=== PATIENT | female | born 1930 | race Caucasian/White ===

== ENCOUNTER 2017-08-13 08:43 | Emergency (ER) | payer MEDICARE ==
--- NOTE | 2017-08-13 09:03 | RAD ---
CHEST 1 VIEW: Date: 08/13/17 HISTORY: Dyspnea. COMPARISON: 08/09/16. FINDINGS: Cardiac silhouette is magnified and upper limits of normal. Pulmonary vasculature is more engorged th an on the prior study with mild bilateral perihilar and bibasilar infiltrates. Mediastinum is midline with aortic calcification and a dual lead left subclavian cardiac electronic device. No lobar consol idation or evidence of pneumothorax. There are degenerative changes of the shoulders. IMPRESSION: Mild pulmonary vascular congestion. POS: [facility]
--- NOTE | 2017-09-05 21:19 | EKG ---
Test Reason : SOB Blood Pressure : / mmHG Vent. Rate : 060 BPM Atrial Rate : 060 BPM P-R Int : 132 ms QRS Dur : 142 ms QT Int : 476 ms P-R-T Axes : 065 -41 098 degrees QTc Int : 476 ms Electronic atrial pacemaker Left axis deviation Right bundle branch block T wave abnormality, consider lateral ischemia Abnormal ECG Confirmed by KAIA MARTINEZ MD ([id number]), senior technical editor BRENNA TORRES ([id number]) on 09/05/2017 9:18:47 PM Referred By: Confirmed By:KAIA MARTINEZ MD
== END 2017-08-13 11:00 | disposition home or self-care (01) ==
LOC: ERS 08:43
DX: J44.9 Chronic obstructive pulmonary disease, unspecified (principal); I11.0 Hypertensive heart disease with heart failure; I50.9 Heart failure, unspecified; Z79.899 Other long term (current) drug therapy
CPT/HCPCS: 71045; 93005; 94760

== ENCOUNTER 2018-03-29 12:18 | Emergency (ER) | payer MEDICARE ==
[2018-03-29 13:42] LABS: #Eosinphils 0.2 thou/uL (0.0-0.7); #Monocytes 0.5 thou/uL (0.11-0.59); #Neutrophils 3.8 thou/uL (1.40-6.50); %Basophils 0.7 % (0.0-1.0); %Eosinophils 3.8 % (0.0-10.0); %Lymphocytes 17.8 % (21.0-51.0); %Monocytes 9.1 % (0.0-10.0); %Neutrophils 68.6 % (42.0-75.0); Mean Corpuscular HGB CONC 31.4 g/dL (32.0-36.0); Mean Corpuscular Hemoglobin 28.1 pg (27.0-31.0); Mean Corpuscular Volume 89.4 fL (78.0-98.0); Mean Platelet Volume 9.1 fL (7.4-10.4); Platelet Count 379 thou/uL (130-400); Red Blood Cell (RBC) Count 4.65 mill/uL (4.20-5.40); White Blood Cell (WBC) Count 5.6 thou/uL (4.8-10.8)
[2018-03-29 13:56] LABS: Bilirubin Negative (Negative); Blood, Urine Negative (Negative); Clarity CLEAR (Clear); Glucose, Urine (Dipstick) Negative (Negative); Leukocyte Trace (Negative); Nitrite Negative (Negative); Protein, Urine (Dipstick) Negative (Neg-Trace); Specific Gravity, Urine 1.015 (1.002-1.036); pH, Urine 7.5 (5.0-9.0)
[2018-03-29 13:58] LABS: Bacteria/HPF None Seen HPF (None Seen); Hyaline Casts/LPF 0-3 HYALINE CAST LPF (0-3 Hyaline); RBC/HPF 0-3 HPF (0-3); Squamous Epithelial 0-3 HPF (0-3); WBC/HPF 0-3 HPF (0-3)
[2018-03-29 13:59] LABS: ALT (SGPT) 16 U/L (8-55); AST (SGOT) 24 U/L (5-34); Albumin 4.1 g/dL (3.4-4.8); Alkaline Phosphatase 50 U/L (40-150); Anion Gap 12 mmol/L (10-20); BUN (Urea Nitrogen) 40 mg/dL (9.8-20.1); Bilirubin, Total 0.8 mg/dL (0.2-1.2); CK (CPK) 85 U/L (29-168); Calc. Creatinine Clearance 0 mL/min (70-130); Calcium 9.1 mg/dL (7.8-10.44); Carbon Dioxide 29 mmol/L (23-31); Chloride 101 mmol/L (98-107); Estimated GFR-MDRD 41; Globulin 2.6 g/dL (2.4-3.5); Glucose 97 mg/dL (83-110); Protein, Total 6.7 g/dL (6.0-8.3); Sodium 138 mmol/L (136-145)
[2018-03-29 14:00] LABS: CKMB 1.7 ng/mL (0-6.6); Troponin I Less than 0.010 ng/mL (< 0.028)
--- NOTE | 2018-03-29 14:00 | RAD ---
SINGLE VIEW OF THE CHEST: Comparison: 08-13-17 History: Fluid overload FINDINGS: Single view of the chest of the chest shows an enlarged but stable cardiomediastinal silhouette. The pacemaker is unchanged in position. There is no evidence of consolidation, mass, or pleural effusion. IMPRESSION: No evidence of acute cardiopulmonary disease. POS: [facility]
[2018-03-29] MEDS ORDERED: Furosemide 40 MG/4 ML VIAL ONE (14:18)
== END 2018-03-29 15:19 | disposition home or self-care (01) ==
LOC: ERS 12:18
DX: I11.0 Hypertensive heart disease with heart failure (principal); I50.9 Heart failure, unspecified; E87.70 Fluid overload, unspecified; R60.0 Localized edema; Z79.899 Other long term (current) drug therapy; Z79.891 Long term (current) use of opiate analgesic
CPT/HCPCS: 71045; 80053; 81003; 81015; 82553; 83880; 84484; 85025; 93005; 96374; J1940

== ENCOUNTER 2018-09-04 09:39 | Inpatient (IN) | payer MEDICARE ==
[2018-09-04 10:16] LABS: Actual Bicarbonate (HCO3a) 25.4 mEq/L (22-28); Analyzer IN Cardio ER; Base Excess (BEa) 1.4 mEq/L (-2.0 to +3.0); CO2 Tension 38.2 mmHg (35.0-45.0); Calcium, Ionized 1.19 mmol/L (1.12-1.30); Carboxyhemoglobin (COHb) 1.2 gm% (0.0-3.0); Hemoglobin (Hb) 14.3 g/dL (12.0-16.0); Potassium - ABG Lab 3.59 mmol/L (3.70-5.30); pH, Arterial 7.44 (7.35-7.45)
[2018-09-04 10:20] LABS: O2 Tension (PaO2) 53.8 mmHg (> 60.0)
[2018-09-04 10:21] LABS: Puncture Site RR
[2018-09-04 10:36] LABS: #Eosinphils 0.1 thou/uL (0.0-0.7); #Monocytes 0.4 thou/uL (0.11-0.59); #Neutrophils 4.8 thou/uL (1.40-6.50); %Basophils 0.4 % (0.0-1.0); %Eosinophils 1.1 % (0.0-10.0); %Lymphocytes 15.4 % (21.0-51.0); Hemoglobin 14.5 g/dL (12.0-16.0); Mean Corpuscular HGB CONC 31.7 g/dL (32.0-36.0); Mean Corpuscular Hemoglobin 27.9 pg (27.0-31.0); Mean Corpuscular Volume 87.9 fL (78.0-98.0); Mean Platelet Volume 9.3 fL (7.4-10.4); Platelet Count 320 thou/uL (130-400); RBC Distribution Width 14.3 % (11.5-14.5); White Blood Cell (WBC) Count 6.2 thou/uL (4.8-10.8)
--- NOTE | 2018-09-04 10:38 | RAD ---
FPortable chest radiograph: 09/04/2018 COMPARISON: 03/29/2018 HISTORY:Dyspnea FINDINGS: Stable dual lead transvenous pacing device. New pulmonary vascular congestion. New intersti tial opacity in the perihilar regions and both lung bases with new focal right perihilar airspace dis ease and new bibasilar airspace disease. Small bilateral pleural effusions are suspected. IMPRESSION: New pulmonary vascular congestion with interstitial and alveolar opacity as above. Findin gs are most consistent with pulmonary edema. Infectious pneumonitis or aspiration is a possibility. F ollow-up imaging following treatment to document resolution advised.
[2018-09-04 10:55] LABS: ALT (SGPT) 14 U/L (8-55); AST (SGOT) 24 U/L (5-34); Alkaline Phosphatase 45 U/L (40-150); Anion Gap 13 mmol/L (10-20); BUN (Urea Nitrogen) 24 mg/dL (9.8-20.1); Bilirubin, Total 1.1 mg/dL (0.2-1.2); Calc. Creatinine Clearance 0 mL/min (70-130); Calcium 9.3 mg/dL (7.8-10.44); Carbon Dioxide 27 mmol/L (23-31); Chloride 104 mmol/L (98-107); Estimated GFR-MDRD 52; Globulin 2.7 g/dL (2.4-3.5); Glucose 98 mg/dL (83-110); Potassium 3.7 mmol/L (3.5-5.1); Protein, Total 6.7 g/dL (6.0-8.3); Sodium 140 mmol/L (136-145)
[2018-09-04] MEDS ORDERED: cefTRIAXone\\ROCEPHIN 1 GM VIAL ONE (11:28)
[2018-09-04] MEDS ORDERED: Sodium Chloride 0.9% 100 ML ONE (11:28)
[2018-09-04] MEDS ORDERED: Ondansetron PF 4 MG/2 ML Vial IVP PRN (12:07)
[2018-09-04] MEDS ORDERED: HYDROcodone/Acetaminophen 5/325 mg Tablet PO PRN (12:07)
[2018-09-04] MEDS ORDERED: Acetaminophen 325 MG TAB PO PRN (12:07)
[2018-09-04] MEDS ORDERED: Zolpidem Tartrate 5 MG TAB PO PRN (12:07)
--- NOTE | 2018-09-04 12:15 | PDOC.EVN ---
Event Note - Event Note Event Note: H&P #[id number]
[2018-09-04] MEDS: Furosemide 40 MG/4 ML VIAL SLOW IVP SCH (14:03)
[2018-09-04] MEDS ORDERED: Metoprolol Tartrate 5 MG/5 ML VIAL IVP PRN (14:34)
[2018-09-04] MEDS: Azithromycin 500 MG in Sodium Chloride 0.9% 250 ML 250 ML IVPB SCH (14:42)
[2018-09-04] MEDS: methylPREDNISolone Sod Succ/PF 125 MG/2 ML VIAL IVP SCH (17:50)
--- NOTE | 2018-09-04 18:28 | HP ---
CHIEF COMPLAINT: Shortness of breath, cough, fevers, and chills. HISTORY OF PRESENT ILLNESS: This is an 87-year-old female for the past 3 to 4 days has been having shortness of breath, fevers, chills, and cough. The patient of note, sees a tablet technician at [facility]; however, they could not go over there because this hospital at [facility] was closer. The patient stated that she was having cough with shortness of breath the past 3 to 4 days. States that she uses also oxygen permanently at home. Has a history of congestive heart failure, diastolic in nature. According to the family, the patient was noted to have a mild low-grade fever of 100 degrees while here in the hospital, she has been given IV antibiotics. Influenza workup done in the hospital was negative. The patient stated that she had her flu vaccine as well as her Prevnar, Pneumovax done recently. The patient was found to be severely hypoxic with a PO2 of 54 on ABG upon time of admission. The patient otherwise stated that she feels well. Denies any other associated complaints. No alleviating or aggravating factors. The patient is seen and examined in the ER. Family at bedside. All questions answered. ALLERGIES: NO KNOWN DRUG ALLERGIES. 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 FAMILY HISTORY: Positive for hypertension and hyperlipidemia. SOCIAL HISTORY: Nondrinker and nonsmoker. REVIEW OF SYSTEMS: All systems reviewed pertinent positive in HPI, otherwise negative. PHYSICAL EXAMINATION: VITAL SIGNS: Blood pressure of 110/88, heart rate of 98, temperature of 99.8, and O2 saturations are 92% on breathing treatment at this point in time. GENERAL: The patient lying upright in bed with some mild acute respiratory distress. HEENT: Pupils are equal, round, and reactive to light and accommodation. Extraocular muscles intact. Oral cavity moist and pink. NECK: Supple and nontender. Thyroid appreciated. PULMONARY: She has inspiratory crackles in bilateral lower extremities, as well as expiratory wheezing in all lung mosley. Mild respiratory distress noted. CARDIOVASCULAR: Borderline tachycardia. S1 and S2. Faint systolic ejection murmur appreciated. ABDOMEN: Positive bowel sounds. Soft, nontender, and nondistended. EXTREMITIES: Reveals trace pitting edema. No cyanosis or clubbing. 2+ peripheral pulses. NEUROLOGIC: Cranial nerves 2 through 12 intact. No loss of motor or sensory function. LABORATORY DATA: CBC reviewed. BMP reviewed. Chest x-ray reviewed. ASSESSMENT: 1. Shortness of breath likely secondary to CHF decompensation. 2. Pneumonia. 3. Volume overload. 4. Hypertension. 5. Hypoxia. 6. Hypertension. 7. Hyperlipidemia. PLAN: At this point in time, we will admit the patient to Internal Medicine Team. We will start her on Rocephin and Zithromax to treat for community-acquired pneumonia. We will consult Pulmonary Team. We will get Solu-Medrol, DuoNebs, blood cultures, labs in the morning and echocardiogram. We will also do heparin for DVT prophylaxis. Case and plan discussed with the patient and family at length. They understand, agree with this plan. Job ID: [id number]
[2018-09-04] MEDS: Atorvastatin Calcium 10 MG TAB PO SCH (20:50)
[2018-09-04] MEDS: Heparin 5,000 UNITS/ML VIAL SC SCH (20:51)
[2018-09-04] MEDS: Famotidine 20 MG TAB PO SCH (20:51)
[2018-09-04] MEDS: Simvastatin 20 MG TAB PO SCH (20:52)
[2018-09-04] MEDS ORDERED: Amlodipine 5 MG TAB PO SCH (21:00)
[2018-09-04] MEDS ORDERED: Carvedilol 6.25 MG TAB PO SCH (21:00)
[2018-09-04] MEDS: Carvedilol 6.25 MG TAB PO SCH (21:00)
[2018-09-04] MEDS ORDERED: Apixaban 2.5 MG TAB PO SCH (21:00)
[2018-09-05] MEDS: methylPREDNISolone Sod Succ/PF 125 MG/2 ML VIAL IVP SCH ×4 (01:10→17:46)
[2018-09-05] MEDS: Furosemide 40 MG/4 ML VIAL SLOW IVP SCH ×2 (05:33→13:25)
[2018-09-05 06:05] LABS: #Lymphocytes 0.6 thou/uL (1.20-3.40); #Monocytes 0.3 thou/uL (0.11-0.59); %Basophils 0.1 % (0.0-1.0); %Eosinophils 0.2 % (0.0-10.0); %Lymphocytes 9.3 % (21.0-51.0); %Monocytes 3.6 % (0.0-10.0); %Neutrophils 86.8 % (42.0-75.0); Mean Corpuscular HGB CONC 31.6 g/dL (32.0-36.0); Mean Corpuscular Hemoglobin 27.6 pg (27.0-31.0); Mean Corpuscular Volume 87.3 fL (78.0-98.0); Mean Platelet Volume 9.3 fL (7.4-10.4); Platelet Count 340 thou/uL (130-400); RBC Distribution Width 14.2 % (11.5-14.5); Red Blood Cell (RBC) Count 5.08 mill/uL (4.20-5.40); White Blood Cell (WBC) Count 6.9 thou/uL (4.8-10.8)
[2018-09-05 06:22] LABS: Anion Gap 14 mmol/L (10-20); BUN (Urea Nitrogen) 24 mg/dL (9.8-20.1); Calc. Creatinine Clearance 50 mL/min (70-130); Calcium 8.9 mg/dL (7.8-10.44); Carbon Dioxide 27 mmol/L (23-31); Chloride 105 mmol/L (98-107); Estimated GFR-MDRD 55; Glucose 161 mg/dL (83-110); Potassium 3.5 mmol/L (3.5-5.1); Sodium 142 mmol/L (136-145)
[2018-09-05] MEDS ORDERED: Potassium Chloride 10 MEQ TAB PO SCH (09:00)
[2018-09-05] MEDS ORDERED: Losartan 25 MG TAB PO SCH ×2 (09:00)
[2018-09-05] MEDS ORDERED: Aspirin 325 mg Enteric Coated Tablet PO SCH (09:00)
--- NOTE | 2018-09-05 09:50 | RAD ---
FPortable chest radiograph: 09/05/2018 COMPARISON: 09/04/2018 HISTORY:congestive heart failure versus pneumonia FINDINGS: Stable dual lead transvenous pacing device. Markedly improved aeration in both lung bases. Persistent focal right perihilar opacity noted. This could signify pulmonary vascular prominence, per sistent right perihilar airspace disease, or underlying mass. Recommend follow-up PA and lateral imag ing of the chest following treatment. IMPRESSION: Interval improvement in bibasilar aeration with persistent focal right perihilar opacity as detailed above.
[2018-09-05] MEDS: Carvedilol 6.25 MG TAB PO SCH ×2 (09:54→20:59)
[2018-09-05] MEDS: Famotidine 20 MG TAB PO SCH ×2 (09:54→21:00)
[2018-09-05] MEDS: Amlodipine 5 MG TAB PO SCH (09:55)
[2018-09-05] MEDS: Potassium Chloride 10 MEQ TAB PO SCH (09:55)
[2018-09-05] MEDS ORDERED: Apixaban 2.5 MG TAB PO SCH (10:30)
[2018-09-05] MEDS: Heparin 5,000 UNITS/ML VIAL SC SCH (11:13)
[2018-09-05] MEDS ORDERED: cefTRIAXone\\ROCEPHIN 1 GM in Sodium Chloride 0.9% 100 ML IVPB SCH (12:00)
[2018-09-05] MEDS: Azithromycin 500 MG in Sodium Chloride 0.9% 250 ML 250 ML IVPB SCH (12:17)
--- NOTE | 2018-09-05 14:22 | PDOC.PN ---
- Subjective Encounter Start Date: 09/05/18 Encounter Start Time: 14:21 Patient seen and examined, no new issues or complaints, patient states he feels MUCH better, all questions answered. Family at bedside, all questions answered. - Objective Vital Signs & Weight: Vital Signs (12 hours) Temp Pulse Resp BP BP Pulse Ox 09/05/18 11:35 97.9 F 81 22 H 118/76 92 L 09/05/18 09:55 84 09/05/18 08:00 97 09/05/18 07:45 97.4 F L 84 20 140/79 97 09/05/18 04:11 97.5 F L 73 16 115/60 94 L Weight Weight 164 lb 4 oz I&O: 09/04/18 09/05/18 09/06/18 06:59 06:59 06:59 Intake Total 580 1060 Output Total 200 Balance 580 860 Result Diagrams: 09/05/18 05:51 09/05/18 05:51 Phys Exam - Physical Examination Constitutional: NAD HEENT: PERRLA, moist MMs, sclera anicteric Neck: no nodes, no JVD, supple Respiratory: no wheezing, no rales, no rhonchi Cardiovascular: RRR, no significant murmur, no rub Gastrointestinal: soft, non-tender, no distention Musculoskeletal: no edema, pulses present Dx/Plan (1) Acute exacerbation of CHF (congestive heart failure) Code(s): I50.9 - HEART FAILURE, UNSPECIFIED Status: Acute (2) Acute respiratory failure with hypoxia Code(s): J96.01 - ACUTE RESPIRATORY FAILURE WITH HYPOXIA Status: Acute (3) Acute worsening of stage 3 chronic kidney disease Code(s): N18.3 - CHRONIC KIDNEY DISEASE, STAGE 3 (MODERATE) Status: Acute (4) Community acquired bacterial pneumonia Code(s): J15.9 - UNSPECIFIED BACTERIAL PNEUMONIA Status: Acute - Plan * cont current plan of care for now * DC plans in AM if patient doing well and with no complaints. * case and plan d/w patient at length, she understood and agreed with this plan
[2018-09-05] MEDS: Simvastatin 20 MG TAB PO SCH (20:59)
[2018-09-05] MEDS: Cefuroxime Axetil 250 MG TAB PO SCH (20:59)
[2018-09-05] MEDS: Apixaban 2.5 MG TAB PO SCH (21:01)
[2018-09-05] MEDS: Atorvastatin Calcium 10 MG TAB PO SCH (21:02)
--- NOTE | 2018-09-05 23:40 | CON ---
DATE OF CONSULTATION: 09/05/2018 HISTORY OF PRESENT ILLNESS: Yeny Davila is a very pleasant 87-year-old female. She tells me she has a history of diastolic heart failure. She presented with a 4-pound weight gain and severe shortness of breath. Intake and output 2 days is not accurately recorded. Weight has gone from 166 to 164, again I am not sure that this is an accurate weight. PAST MEDICAL HISTORY: Remarkable for, 1. Asthma. 2. Diastolic dysfunction. 3. History of pacemaker and an AICD. 4. History of hypertension. 5. Lipid disorder. FAMILY HISTORY: Positive for vascular disease and hypertension. SOCIAL HISTORY: Nonsmoker, nondrinker, nondrug user. ALLERGIES: SHE HAS NO REPORTED DRUG ALLERGIES. REVIEW OF SYSTEMS: A 10-point review of systems completed, otherwise negative. PHYSICAL EXAMINATION: GENERAL: She is in no distress. VITAL SIGNS: She is afebrile, heart rate 90, respiratory rate 18, oximetry is 93% on 2 L cannula, blood pressure 116/68. HEENT: Unremarkable. She has no cervical lymphadenopathy. NECK: Supple. LUNGS: Clear. HEART: Regular rhythm, S1 and S2 are normal. No murmurs heard. ABDOMEN: Soft and nontender. No organomegaly or masses or tenderness. EXTREMITIES: Without clubbing, cyanosis, or edema. She says she came in with significant lower extremity edema, this has gone. LABORATORY DATA: White count 6.9, hemoglobin 14.0, platelets 340,000. Sodium 142, potassium 3.5, chloride 105, bicarb 27, BUN 24, creatinine 0.9. BNP on admission was 1193. Chest radiograph on admission suggestive of congestive heart failure. I ordered repeat radiograph today, which shows dramatic improvement of her pulmonary infiltrates. Her right hilar area is full. I suspect this is what her marketing communications leader at [facility] is followed. I have explained to her that if this fails to normalize on followup film in 2 to 4 weeks, then I would recommend with a CT of her chest. IMPRESSION: Congestive heart failure. I do not feel that she has pneumonia. She could be switched to p.o. antibiotics. Her steroids could be converted to p.o. She is a candidate for discharge tomorrow in my opinion. TIME SPENT: This is a 50-minute consult, with greater than 50% of the time spent on the unit coordinating care. Job ID: [id number] YUNG
[2018-09-06] MEDS: methylPREDNISolone Sod Succ/PF 125 MG/2 ML VIAL IVP SCH ×2 (01:13→06:40)
[2018-09-06] MEDS: Furosemide 40 MG/4 ML VIAL SLOW IVP SCH (06:40)
[2018-09-06 07:39] VITALS: BP 134/78; TEMP 97.7
--- NOTE | 2018-09-06 07:42 | RAD ---
FChest one view HISTORY: Pneumonia. Follow-up. COMPARISON: 09/05/2018. FINDINGS: Cardiac silhouette is magnified by projection and upper limits normal in size. Pulmonary va sculature is unremarkable. Mediastinum is midline with a dual lead left subclavian cardiac electronic device. Right perihilar infiltrate is unchanged in appearance from the previous exam. No evidence of pneumoth orax. No new infiltrate. IMPRESSION: Right perihilar infiltrate and other findings are stable.
[2018-09-06] MEDS: Cefuroxime Axetil 250 MG TAB PO SCH (09:38)
[2018-09-06] MEDS: Apixaban 2.5 MG TAB PO SCH (09:38)
[2018-09-06] MEDS: Amlodipine 5 MG TAB PO SCH (09:38)
[2018-09-06] MEDS: Potassium Chloride 10 MEQ TAB PO SCH (09:38)
[2018-09-06] MEDS: Famotidine 20 MG TAB PO SCH (09:39)
[2018-09-06] MEDS: Carvedilol 6.25 MG TAB PO SCH (09:39)
[2018-09-06 10:42] VITALS: BMI 28.2
--- NOTE | 2018-09-06 11:02 | PRG ---
DATE OF SERVICE: 09/06/2018 SUBJECTIVE: Yeny Davila did well overnight. She has no complaints. She feels like she is ready to go home. OBJECTIVE: VITAL SIGNS: She is afebrile. Heart rate is 83, blood pressure 134/78, respiratory rate 16, oximetry is 95% on a cannula. She was wearing a home CPAP last night. LUNGS: Clear. HEART: Regular rhythm. ABDOMEN: Soft. LABORATORY DATA: No new labs today. IMPRESSION AND PLAN: 1. Congestive heart failure, clinically improved. 2. Hilar fullness on the right. I suspect this is old and just pulmonary artery. She needs followup radiograph with her [employer] consulting utility forester in one month as I have explained to her. I would not recommend CAT scanning at this time since a workup would not be entertained this admission anyway if there was a hilar abnormality. 3. I do not believe she is infected and her antibiotics actually could probably be stopped at discharge since she received several days of Rocephin. 4. I do not see any reason to continue the steroids. 5. She can go back on her home medications for asthma. She has not had active asthma in my opinion this admission. We will sign off. Job ID: [id number]
--- NOTE | 2018-09-06 12:15 | PDOC.EVN ---
Event Note - Event Note Event Note: AK #[id number]
--- NOTE | 2018-09-06 13:32 | DIS ---
DATE OF ADMISSION: 09/04/2018 DATE OF DISCHARGE: 09/06/2018 ADMITTING DIAGNOSES: Congestive heart failure, shortness of breath, hypoxia, heart failure. DISCHARGE DIAGNOSES: Congestive heart failure, hypoxia resolved, hypertension, pneumonia resolved. HOSPITAL COURSE: An 87-year-old female admitted to the hospital concerning for pulmonary infiltrates and volume overload. Her white count was normal. She was started on some IV antibiotics and also diuretics. The patient was admitted for 2 days, feeling significantly better after diuretics were given. The patient at that point in time of discharge was stable, walking around, cleared by Pulmonary and Internal Medicine for discharge. Given antibiotic azithromycin for 3 days. The patient was to follow up with PCP within 1 to 2 weeks, as well as with pulmonary physician within 1 to 2 weeks for further management and care. DISPOSITION: Home. FOLLOWUP: Follow up with PCP and Pulmonary within 1 to 2 weeks. MEDICATIONS: See MAR. ACTIVITY: As tolerated with assistance as needed. DIET: Low-fat, low-calorie, high-fiber diet. CONDITION: Stable. PROGNOSIS: Good. Case and plan discussed with patient at length. She understood and agreed with this plan. Job ID: [id number]
--- NOTE | 2018-09-06 13:37 | EKG ---
Test Reason : STAT Blood Pressure : / mmHG Vent. Rate : 118 BPM Atrial Rate : 082 BPM P-R Int : 000 ms QRS Dur : 136 ms QT Int : 392 ms P-R-T Axes : 000 -53 080 degrees QTc Int : 549 ms Atrial fibrillation with rapid ventricular response with occasional ventricular-paced complexes Left axis deviation Right bundle branch block T wave abnormality, consider lateral ischemia Abnormal ECG When compared with ECG of 29-MAR-2018 12:35, Electronic ventricular pacemaker has replaced Electronic atrial pacemaker Vent. rate has increased BY 58 BPM Confirmed by SERGE SYKES, DR. Zimmer ([id number]) on 09/06/2018 1:37:15 PM Referred By: Confirmed By:DR. Mesha VALENTINE MD
--- NOTE | 2018-09-07 14:27 | PQF ---
DILSHAD HALL STACY WELLS [id number] [address] [place] [address] [id number] CLINICAL DOCUMENTATION IMPROVEMENT CLARIFICATION FORM: ICD-10 Updated PLEASE DO AN ADDENDUM TO THE PROGRESS NOTE WITH ANY DOCUMENTATION UPDATES OR ADDITIONS AND CARRY THROUGH TO DC SUMMARY. THANK YOU. DATE: 09/07/18 ATTN: Dr. Wen Please exercise your independent, professional judgment in responding to the clarification form. Clinical indicators are provided on the bottom of this form for your review Please check appropriate box(s): DECOMPENSATION HEART FAILURE: A. TYPE: [ x ] Diastolic / HFpEF [ ] Combined Systolic / Diastolic [ ] Other diagnosis [ ] Unable to determine In addition, please specify: Present on Admission (POA): [ x ] Yes [ ] No [ ] Unable to determine For continuity of documentation, please document condition throughout progress notes and discharge summary. Thank You. CLINICAL INDICATORS - SIGNS / SYMPTOMS / LABS H&P under past med hx documents "diastolic dysfunction". CHF DECOMPENSATION, HYPOXIA per H&P 09/04 CXR: NEW PULMONARY VASCULAR CONGESTION WITH INTERSTITIAL AND ALVEOLAR OPACITY. FINDINGS ARE MOST CONSISTENT WITH PULMONARY EDEMA 09/05 PULM: BNP 1193 RISKS: History of HTN, CKD III PER 09/05 IM note TREATMENTS: Administration of ARB / BB--> losartan 09/05; coreg -09/06 per JUL Cardiac monitoring / telemetry 09/04 orders IV diuretics--> IV lasix 09/04-09/06 per JUL (This form is maintained as a part of the permanent medical record) 2014 [email or web address], [employer]. All Rights Reserved Rosie Jordan RN, BSN, CCDS [email or web address] [facility]
--- NOTE | 2018-09-11 10:17 | EKG ---
Test Reason : Blood Pressure : / mmHG Vent. Rate : 077 BPM Atrial Rate : 077 BPM P-R Int : 134 ms QRS Dur : 138 ms QT Int : 418 ms P-R-T Axes : 071 -39 091 degrees QTc Int : 473 ms Normal sinus rhythm Left axis deviation Right bundle branch block T wave abnormality, consider lateral ischemia Abnormal ECG Similar to 03/29/2018 Confirmed by BERNICE PADGETT DO ([id number]), brands editor TIFFANIE GUTIERREZ ([id number]) on 09/11/2018 10:17:16 AM Referred By: Confirmed By:BERNICE PADGETT DO
== END 2018-09-06 13:53 | disposition home or self-care (01) | DRG 291 ==
LOC: ERS 09:39 → T4-B 12:35 → 2SE 15:54
PROVIDERS: ADMIT Internal Medicine; ATTEND Internal Medicine
DX: I13.0 Hypertensive heart and chronic kidney disease with heart failure and stage 1 through stage 4 chronic kidney disease, or unspecified chronic kidney disease (principal); J15.9 Unspecified bacterial pneumonia; I50.31 Acute diastolic (congestive) heart failure; J45.909 Unspecified asthma, uncomplicated; E78.5 Hyperlipidemia, unspecified; R09.02 Hypoxemia; I50.9 Heart failure, unspecified; N18.3 Chronic kidney disease, stage 3 (moderate); Z95.810 Presence of automatic (implantable) cardiac defibrillator
CPT/HCPCS: 36415; 71045; 80048; 80053; 82805; 83605; 83880; 85025; 87040; 87804; 93005; 93010; 93306; 94760; 96361; 96365; 96375; J0456; J0696; J1644; J1940; J2930; J7050; J7620

== ENCOUNTER 2018-10-24 09:23 | Observation (INO) | payer MEDICARE ==
[2018-10-24 09:57] LABS: #Eosinphils 0.1 thou/uL (0.0-0.7); #Lymphocytes 0.9 thou/uL (1.20-3.40); #Monocytes 0.8 thou/uL (0.11-0.59); #Neutrophils 5.7 thou/uL (1.40-6.50); %Basophils 0.6 % (0.0-1.0); %Lymphocytes 11.6 % (21.0-51.0); %Monocytes 10.1 % (0.0-10.0); %Neutrophils 75.8 % (42.0-75.0); Mean Corpuscular HGB CONC 32.2 g/dL (32.0-36.0); Mean Corpuscular Hemoglobin 28.4 pg (27.0-31.0); Mean Corpuscular Volume 88.2 fL (78.0-98.0); Platelet Count 302 thou/uL (130-400); RBC Distribution Width 14.2 % (11.5-14.5); Red Blood Cell (RBC) Count 4.93 mill/uL (4.20-5.40); White Blood Cell (WBC) Count 7.5 thou/uL (4.8-10.8)
--- NOTE | 2018-10-24 09:57 | RAD ---
EXAM: Single view of the chest HISTORY: Shortness of breath for 2 days COMPARISON: 09/06/2018 FINDINGS: Single view of the chest shows an enlarged but stable cardiomediastinal silhouette. The pa cemaker is unchanged in position. Increased interstitial markings are stable. There is no evidence of consolidation, mass, or pleural effusion. The bones are unremarkable. IMPRESSION: No evidence of acute cardiopulmonary disease
[2018-10-24 10:07] LABS: ALT (SGPT) 18 U/L (8-55); AST (SGOT) 19 U/L (5-34); Albumin 4.1 g/dL (3.4-4.8); Alkaline Phosphatase 69 U/L (40-150); Anion Gap 14 mmol/L (10-20); BUN (Urea Nitrogen) 21 mg/dL (9.8-20.1); Bilirubin, Total 1.6 mg/dL (0.2-1.2); Calc. Creatinine Clearance 0 mL/min (70-130); Calcium 9.5 mg/dL (7.8-10.44); Carbon Dioxide 29 mmol/L (23-31); Chloride 101 mmol/L (98-107); Estimated GFR-MDRD 64; Globulin 2.6 g/dL (2.4-3.5); Glucose 91 mg/dL (83-110); Potassium 3.5 mmol/L (3.5-5.1); Protein, Total 6.7 g/dL (6.0-8.3); Sodium 140 mmol/L (136-145)
[2018-10-24] MEDS ORDERED: Aspirin Chewable 81 MG TAB ONE (10:07)
[2018-10-24] MEDS ORDERED: Furosemide 40 MG/4 ML VIAL ONE (10:07)
[2018-10-24] MEDS ORDERED: Senokot S 8.6-50 MG TAB PO PRN (11:19)
[2018-10-24] MEDS ORDERED: Acetaminophen 325 MG TAB PO PRN (11:19)
[2018-10-24 12:52] LABS: Troponin I Less than 0.010 ng/mL (< 0.028)
[2018-10-24 16:10] LABS: Troponin I Less than 0.010 ng/mL (< 0.028)
[2018-10-24 16:45] VITALS: BMI 29.6
--- NOTE | 2018-10-24 16:45 | HP ---
CHIEF COMPLAINT: Shortness of breath. HISTORY OF PRESENT ILLNESS: The patient is a very pleasant 87-year-old female with past medical history of diastolic heart failure, hypertension, who presents to the hospital with complaints of shortness of breath since Thursday. The patient states that she went camping about 4 days ago and has been compliant with her medications. However, on Thursday, she started noticing increased shortness of breath on exertion. The patient normally uses 2 L of oxygen all day every day, however, had to bump up her oxygen a few times to catch her breath. Denies any chest pain or chest pressure. No fevers or chills. No nausea, vomiting, or diarrhea. She stated that she did have a little bit of cough today. PAST MEDICAL HISTORY: 1. Heart failure, diastolic. 2. Hypertension. 3. Possible emphysema due to secondhand smoking. PAST SURGICAL HISTORY: 1. She has had back surgery x2. 2. She has had bilateral arm surgery. 3. Appendectomy. 4. Colostomy. 5. Hysterectomy. SOCIAL HISTORY: She never smoked. No alcohol use. No drug use. She has had secondhand smoking significantly from and parents. She lives alone, and she is a full code. ALLERGIES: NO KNOWN DRUG ALLERGIES. MEDICATIONS: She is on; 1. Losartan 100 mg daily. 2. Ipratropium-albuterol (DuoNeb) 1 q.i.d. p.r.n. 3. Lasix 40 mg daily. 4. Carvedilol 12.5 b.i.d. 5. Amlodipine 5 mg daily. 6. Apixaban 2.5 mg p.o. b.i.d. REVIEW OF SYSTEMS: All negative except for the ones mentioned above in the HPI. FAMILY HISTORY: She does not have a history of any heart disease or stroke in her family. PHYSICAL EXAMINATION: VITAL SIGNS: She is afebrile at 98.0, respirations are 22, oxygen saturation 94% on 6 L, pulse is 76, blood pressure 121/72. GENERAL: She is awake, alert, and oriented x3. Does not appear in any distress. HEENT: Normocephalic, atraumatic. No lymphadenopathy noted. Pupils are equal and reactive to light. CV: S1 and S2 present. No murmurs, rubs, or gallops. LUNGS: Clear to auscultation. She does have some diminished breath sounds to bilateral lower lung area. ABDOMEN: Soft and nontender. Bowel sounds are present x2. EXTREMITIES: +1 lower extremity edema. NEUROVASCULAR: No focal deficits noted. SKIN: No cuts, lesions, or bruises noted. LABORATORY AND DIAGNOSTIC RESULTS: WBC of 7.5, hemoglobin of 14.0, hematocrit of 43.4, platelets of 302. Chemistry; sodium of 140, potassium of 3.5, BUN of 21, creatinine of 0.84. BNP of 1082.9. Chest x-ray did not indicate any acute abnormalities. However, upon my interpretation, she may be possibly have some pulmonary congestion. EKG; she had some lateral T-wave inversions. However, upon reviewing her previous EKG, they appear similar. However, just in V5, V6, her P waves in August of this year were upright; however, this time, they are little flipped. ASSESSMENT AND PLAN: The patient is a very pleasant 87-year-old female, who presents to the hospital with shortness of breath. 1. Alnyb-sa-oopvlef diastolic heart failure. She did have an echocardiogram last month, which indicated an EF of 50% to 55%. [id number] tricuspid and mild mitral regurgitations were noted. We will start the patient on IV diuretics. I will continue her home medications if her blood pressure is well controlled. We will trend her troponins also, and her BNP was significantly elevated. 2. History of hypertension. Her blood pressure is controlled. We will continue her medications. 3. Deep venous thrombosis prophylaxis. The patient does take Eliquis. I will continue that. Of note, the patient states that she was trying to eat a healthy diet while she was in camping; however, her mild heart failure could be secondary to dietary intake from her recent camping. Job ID: [id number]
[2018-10-24] MEDS: Mometasone/Formoterol 120 PUFF INHALER INH SCH (18:02)
[2018-10-24] MEDS ORDERED: Furosemide 20 MG/2 ML VIAL SLOW IVP SCH (19:15)
[2018-10-24] MEDS: Apixaban 2.5 MG TAB PO SCH (20:27)
[2018-10-24] MEDS: Atorvastatin Calcium 10 MG TAB PO SCH (20:27)
[2018-10-24] MEDS: Carvedilol 6.25 MG TAB PO SCH (23:21)
[2018-10-25 05:07] LABS: #Eosinphils 0.2 thou/uL (0.0-0.7); #Monocytes 0.6 thou/uL (0.11-0.59); #Neutrophils 3.7 thou/uL (1.40-6.50); %Eosinophils 4.1 % (0.0-10.0); %Lymphocytes 17.3 % (21.0-51.0); %Monocytes 10.8 % (0.0-10.0); %Neutrophils 67.9 % (42.0-75.0); Hemoglobin 12.7 g/dL (12.0-16.0); Mean Corpuscular HGB CONC 32.2 g/dL (32.0-36.0); Mean Corpuscular Hemoglobin 28.6 pg (27.0-31.0); Mean Corpuscular Volume 88.8 fL (78.0-98.0); Mean Platelet Volume 8.9 fL (7.4-10.4); Platelet Count 278 thou/uL (130-400); RBC Distribution Width 14.1 % (11.5-14.5); Red Blood Cell (RBC) Count 4.45 mill/uL (4.20-5.40); White Blood Cell (WBC) Count 5.5 thou/uL (4.8-10.8)
[2018-10-25 05:28] LABS: Anion Gap 10 mmol/L (10-20); BUN (Urea Nitrogen) 19 mg/dL (9.8-20.1); Calc. Creatinine Clearance 61 mL/min (70-130); Calcium 8.6 mg/dL (7.8-10.44); Carbon Dioxide 30 mmol/L (23-31); Chloride 102 mmol/L (98-107); Estimated GFR-MDRD 68; Glucose 86 mg/dL (83-110); Sodium 139 mmol/L (136-145)
[2018-10-25] MEDS: Losartan 25 MG TAB PO SCH (08:32)
[2018-10-25] MEDS: Apixaban 2.5 MG TAB PO SCH ×2 (08:32→20:13)
[2018-10-25] MEDS: Carvedilol 6.25 MG TAB PO SCH ×2 (08:33→20:13)
[2018-10-25] MEDS: Amlodipine 5 MG TAB PO SCH (08:33)
[2018-10-25] MEDS ORDERED: Furosemide 40 MG/4 ML VIAL SLOW IVP SCH ×3 (09:00→16:00)
[2018-10-25] MEDS: Ipratropium Bromide 2.5 ml Neb NEB SCH ×4 (11:18→21:33)
[2018-10-25] MEDS: Mometasone/Formoterol 120 PUFF INHALER INH SCH ×2 (11:27→18:01)
--- NOTE | 2018-10-25 14:35 | PDOC.PN ---
- Subjective Encounter Start Date: 10/25/18 Encounter Start Time: 10:15 Subjective: pt up in chair still had some sob yestarday - Objective Resuscitation Status - Order Detail: 10/24/18 11:19 Resuscitation Status Routine Resuscitation Status: FULL: Full Resuscitation Vital Signs & Weight: Vital Signs (12 hours) Temp Pulse Resp BP BP Pulse Ox 10/25/18 12:18 92 L 10/25/18 12:02 98.7 F 60 15 122/82 91 L 10/25/18 11:27 80 20 89 L 10/25/18 11:23 89 L 10/25/18 11:18 80 20 89 L 10/25/18 08:04 98.0 F 62 15 137/65 94 L 10/25/18 03:00 98.4 F 60 20 149/69 H 92 L Weight Weight 166 lb 9.6 oz I&O: 10/24/18 10/25/18 10/26/18 06:59 06:59 06:59 Intake Total 652 Output Total 1100 Balance -448 Result Diagrams: 10/25/18 04:47 10/25/18 04:47 Phys Exam - Physical Examination Respiratory: no wheezing, no rales, no rhonchi, wheezing present, clear to auscultation bilateral Cardiovascular: RRR, no significant murmur, no rub, gallop, irregular Gastrointestinal: soft, non-tender, no distention, positive bowel sounds Musculoskeletal: edema present Dx/Plan (1) Acute exacerbation of CHF (congestive heart failure) Code(s): I50.9 - HEART FAILURE, UNSPECIFIED Status: Acute (2) Hypokalemia Code(s): E87.6 - HYPOKALEMIA Status: Acute (3) Emphysema of lung Code(s): J43.9 - EMPHYSEMA, UNSPECIFIED Status: Acute - Plan pt is still on high oxygen compared to her home use. she has a hx of second -: hand smoking (significant) she has PFT done with her primary last week. -: Her echo last month indicated diastolic dysfunction. will get ct chest to -: rule out PE. pt is on eliquis for her afib but not on full dose. -: will rx breathing tx around the clock. * . Review of Systems - Review of Systems Respiratory: Shortness of Breath Cardiovascular: negative: chest pain, palpitations, orthopnea, paroxysmal nocturnal dyspnea, edema, light headedness, other Gastrointestinal: negative: Nausea, Vomiting, Abdominal Pain, Diarrhea, Constipation, Melena, Hematochezia, Other - Medications/Allergies Allergies/Adverse Reactions: Allergies Allergy/AdvReac Type Severity Reaction Status Date / Time Penicillins Allergy Verified 09/04/18 12:42 Medications: Current Medications Acetaminophen (Tylenol) 650 mg PO Q4H PRN PRN Reason: Headache/Fever/Mild Pain (1-3) Albuterol/Ipratropium (Duoneb) 3 ml NEB BIDPRN PRN PRN Reason: Dyspnea/Wheezing/SOB Amlodipine Besylate (Norvasc) 5 mg PO DAILY [facility] Last Admin: 10/25/18 08:33 Dose: 5 mg Apixaban (Eliquis) 2.5 mg PO BID [facility] Last Admin: 10/25/18 08:32 Dose: 2.5 mg Atorvastatin Calcium (Lipitor) 10 mg PO HS [facility] Last Admin: 10/24/18 20:27 Dose: 10 mg Carvedilol (Coreg) 12.5 mg PO BID [facility] Last Admin: 10/25/18 08:33 Dose: 12.5 mg Cholecalciferol (Vitamin D3) 2,000 units PO DAILY [facility] Last Admin: 10/25/18 08:33 Dose: 2,000 units Furosemide (Lasix) 40 mg SLOW IVP 0900,1600 [facility] Ipratropium [place] (Atrovent) 2.5 ml NEB [id number] [facility] Last Admin: 10/25/18 11:18 Dose: 2.5 ml Losartan Potassium (Cozaar) 100 mg PO DAILY [facility] Last Admin: 10/25/18 08:32 Dose: 100 mg Mometasone Furoate/Formoterol Fumar (Dulera 200 Mcg/5 Mcg Inhaler) 1 puff INH BID-RT [facility] Last Admin: 10/25/18 11:27 Dose: 1 puff Potassium Chloride (K-Dur) 40 meq PO BID-WM [facility] Stop: 10/26/18 08:01 Senna/Docusate Sodium (Senokot S) 2 tab PO BIDPRN PRN PRN Reason: Constipation Sodium Chloride (Flush - Normal Saline) 10 ml IVF Q12HR [facility] Last Admin: 10/25/18 08:33 Dose: 10 ml Sodium Chloride (Flush - Normal Saline) 10 ml IVF PRN PRN PRN Reason: Saline Flush
[2018-10-25] MEDS: Potassium Chloride 20 MEQ TAB PO SCH (16:03)
[2018-10-25] MEDS ORDERED: ISOVUE-370 76%-LOCM 1 ML ONE (16:11)
--- NOTE | 2018-10-25 17:13 | CT ---
CTA chest. HISTORY: Shortness of breath congestive heart failure. Contrast-enhanced CTA of the chest performed. 2-D and 3-D reconstruction images performed. Areas of atelectasis and patchy pneumonia present in the left upper lobe. Bibasilar areas of lung parenchymal consolidation and atelectasis also present. Small bilateral pleural effusions seen. No evidence of pericardial effusion seen. Subcarinal and aorto-pulmonary lymphadenopathy present. No evidence of filling defects seen in the pulmonary arteries to suggest pulmonary emboli. IMPRESSION: lung consolidation and bilateral effusions.
[2018-10-25] MEDS: Atorvastatin Calcium 10 MG TAB PO SCH (20:13)
[2018-10-26] MEDS ORDERED: Melatonin 3 MG TAB PO PRN (01:10)
[2018-10-26] MEDS: Ipratropium Bromide 2.5 ml Neb NEB SCH ×3 (01:30→10:50)
[2018-10-26 05:53] LABS: #Eosinphils 0.3 thou/uL (0.0-0.7); #Monocytes 0.5 thou/uL (0.11-0.59); #Neutrophils 3.3 thou/uL (1.40-6.50); %Basophils 0.7 % (0.0-1.0); %Eosinophils 5.4 % (0.0-10.0); %Lymphocytes 19.6 % (21.0-51.0); %Neutrophils 64.2 % (42.0-75.0); Mean Corpuscular HGB CONC 31.7 g/dL (32.0-36.0); Mean Corpuscular Hemoglobin 28.2 pg (27.0-31.0); Mean Corpuscular Volume 89.1 fL (78.0-98.0); Mean Platelet Volume 9.1 fL (7.4-10.4); Platelet Count 305 thou/uL (130-400); RBC Distribution Width 13.9 % (11.5-14.5); Red Blood Cell (RBC) Count 4.62 mill/uL (4.20-5.40); White Blood Cell (WBC) Count 5.2 thou/uL (4.8-10.8)
[2018-10-26 06:13] LABS: Anion Gap 12 mmol/L (10-20); BUN (Urea Nitrogen) 18 mg/dL (9.8-20.1); Calc. Creatinine Clearance 61 mL/min (70-130); Calcium 8.7 mg/dL (7.8-10.44); Carbon Dioxide 29 mmol/L (23-31); Chloride 101 mmol/L (98-107); Estimated GFR-MDRD 69; Glucose 76 mg/dL (83-110); Potassium 3.5 mmol/L (3.5-5.1); Sodium 138 mmol/L (136-145)
[2018-10-26] MEDS: Mometasone/Formoterol 120 PUFF INHALER INH SCH (06:50)
[2018-10-26] MEDS: Potassium Chloride 20 MEQ TAB PO SCH (07:39)
[2018-10-26] MEDS: Carvedilol 6.25 MG TAB PO SCH (08:15)
[2018-10-26] MEDS: Amlodipine 5 MG TAB PO SCH (08:15)
[2018-10-26] MEDS: Losartan 25 MG TAB PO SCH (08:16)
[2018-10-26] MEDS: Apixaban 2.5 MG TAB PO SCH (08:16)
[2018-10-26] MEDS ORDERED: Furosemide 40 MG/4 ML VIAL SLOW IVP SCH (09:00)
--- NOTE | 2018-10-26 10:39 | PDOC.PN ---
- Subjective Encounter Start Date: 10/26/18 Encounter Start Time: 07:40 -: old records requested/rev Patient seen and examined. No new complaints. No overnight events - Objective Resuscitation Status - Order Detail: 10/24/18 11:19 Resuscitation Status Routine Resuscitation Status: FULL: Full Resuscitation MAR Reviewed: Yes Vital Signs & Weight: Vital Signs (12 hours) Temp Pulse Resp BP BP Pulse Ox 10/26/18 08:00 98.5 F 62 18 128/59 L 92 L 10/26/18 06:40 74 16 10/26/18 05:11 66 18 130/66 94 L 10/26/18 01:30 60 16 10/25/18 23:24 97.0 F L 68 16 119/57 L 95 Weight Weight 164 lb 11.2 oz I&O: 10/25/18 10/26/18 10/27/18 06:59 06:59 06:59 Intake Total 652 1160 Output Total 1100 2000 Balance -448 -840 Result Diagrams: 10/26/18 04:50 10/26/18 04:50 Radiology Reviewed by me: Yes EKG Reviewed by me: Yes Phys Exam - Physical Examination Constitutional: NAD HEENT: PERRLA, moist MMs, sclera anicteric Neck: no JVD, supple Respiratory: no wheezing, no rales, no rhonchi Cardiovascular: RRR, no significant murmur, no rub Gastrointestinal: soft, non-tender, no distention, positive bowel sounds Musculoskeletal: no edema, pulses present Neurological: non-focal, normal sensation Lymphatic: no nodes Psychiatric: normal affect, A&O x 3 Skin: no rash, normal turgor Dx/Plan (1) Acute exacerbation of CHF (congestive heart failure) Code(s): I50.9 - HEART FAILURE, UNSPECIFIED Status: Acute Qualifiers: Heart failure type: diastolic Qualified Code(s): I50.33 - Acute on chronic diastolic (congestive) heart failure (2) Acute respiratory failure with hypoxia Code(s): J96.01 - ACUTE RESPIRATORY FAILURE WITH HYPOXIA Status: Acute Comment: with chronic respi failure on home o2 (3) Acute worsening of stage 3 chronic kidney disease Code(s): N18.3 - CHRONIC KIDNEY DISEASE, STAGE 3 (MODERATE) Status: Acute (4) Community acquired bacterial pneumonia Code(s): J15.9 - UNSPECIFIED BACTERIAL PNEUMONIA Status: Acute (5) Emphysema of lung Code(s): J43.9 - EMPHYSEMA, UNSPECIFIED Status: Acute (6) Hypokalemia Code(s): E87.6 - HYPOKALEMIA Status: Acute - Plan cont current plan of care, plan discussed w/ family, continue antibiotics, respiratory therapy * medication reviewed as below * symptomatic treatment * change to po levaquin. Review of Systems - Review of Systems ENT: negative: Ear Pain, Ear Discharge, Nose Pain, Nose Discharge, Nose Congestion, Mouth Pain, Mouth Swelling, Throat Pain, Throat Swelling, Other Respiratory: negative: Cough, Dry, Shortness of Breath, Hemoptysis, SOB with Excertion, Pleuritic Pain, Sputum, Wheezing Cardiovascular: negative: chest pain, palpitations, orthopnea, paroxysmal nocturnal dyspnea, edema, light headedness, other Gastrointestinal: negative: Nausea, Vomiting, Abdominal Pain, Diarrhea, Constipation, Melena, Hematochezia, Other Genitourinary: negative: Dysuria, Frequency, Incontinence, Hematuria, Retention , Other Musculoskeletal: negative: Neck Pain, Shoulder Pain, Arm Pain, Back Pain, Hand Pain, Leg Pain, Foot Pain, Other Skin: negative: Rash, Lesions, [place], Bruising, Other - Medications/Allergies Allergies/Adverse Reactions: Allergies Allergy/AdvReac Type Severity Reaction Status Date / Time Penicillins Allergy Verified 09/04/18 12:42 Medications: Current Medications Acetaminophen (Tylenol) 650 mg PO Q4H PRN PRN Reason: Headache/Fever/Mild Pain (1-3) Albuterol/Ipratropium (Duoneb) 3 ml NEB BIDPRN PRN PRN Reason: Dyspnea/Wheezing/SOB Amlodipine Besylate (Norvasc) 5 mg PO DAILY [facility] Last Admin: 10/26/18 08:15 Dose: 5 mg Apixaban (Eliquis) 2.5 mg PO BID [facility] Last Admin: 10/26/18 08:16 Dose: 2.5 mg Atorvastatin Calcium (Lipitor) 10 mg PO HS [facility] Last Admin: 10/25/18 20:13 Dose: 10 mg Carvedilol (Coreg) 12.5 mg PO BID [facility] Last Admin: 10/26/18 08:15 Dose: 12.5 mg Cholecalciferol (Vitamin D3) 2,000 units PO DAILY [facility] Last Admin: 10/26/18 08:16 Dose: 2,000 units Furosemide (Lasix) 40 mg SLOW IVP DAILY [facility] Last Admin: 10/26/18 08:15 Dose: 40 mg Levofloxacin 500 mg/ Device 100 mls @ 100 mls/hr IVPB Q24HR [facility] Last Admin: 10/25/18 18:35 Dose: 100 mls Ipratropium [place] (Atrovent) 2.5 ml NEB [id number] [facility] Last Admin: 10/26/18 06:40 Dose: 2.5 ml Losartan Potassium (Cozaar) 100 mg PO DAILY [facility] Last Admin: 10/26/18 08:16 Dose: 100 mg Melatonin (Melatonin) 3 mg PO HS PRN PRN Reason: Insomnia Last Admin: 10/26/18 01:34 Dose: 3 mg Mometasone Furoate/Formoterol Fumar (Dulera 200 Mcg/5 Mcg Inhaler) 1 puff INH BID-RT [facility] Last Admin: 10/26/18 06:50 Dose: 1 puff Senna/Docusate Sodium (Senokot S) 2 tab PO BIDPRN PRN PRN Reason: Constipation Sodium Chloride (Flush - Normal Saline) 10 ml IVF Q12HR [facility] Last Admin: 10/26/18 08:16 Dose: 10 ml Sodium Chloride (Flush - Normal Saline) 10 ml IVF PRN PRN PRN Reason: Saline Flush
[2018-10-26 11:58] VITALS: BP 130/71; TEMP 97.7
--- NOTE | 2018-10-26 12:15 | DIS ---
DATE OF ADMISSION: 10/24/2018 DATE OF DISCHARGE: 10/26/2018 DISCHARGE DISPOSITION: Home. PRIMARY DISCHARGE DIAGNOSES: 1. Acute on chronic diastolic congestive heart failure. 2. Acute on chronic respiratory failure with hypoxia. 3. Acute on chronic kidney failure, baseline chronic kidney disease stage 3. 4. Community-acquired pneumonia. 5. Hypokalemia. SECONDARY DISCHARGE DIAGNOSIS: 1. Chronic obstructive pulmonary disease. 2. Chronic kidney disease stage 3. 3. Chronic diastolic heart failure. 4. Chronic respiratory failure with hypoxia, on home oxygen. 5. Obesity with BMI 30. PRIMARY PROCEDURE AND OPERATION: None. RADIOLOGICAL INVESTIGATION: Chest x-ray, CT angiography. SIGNIFICANT LABORATORY DATA: Creatinine 0.79. Hemoglobin 13.0. DISCHARGE MEDICATIONS: 1. Levaquin 500 mg p.o. daily for 5 days. 2. Amlodipine 5 mg daily. 3. Eliquis 2.5 mg p.o. b.i.d. 4. Coreg 12.5 mg b.i.d. 5. Vitamin D3 of 2000 units p.o. daily. 6. Flonase nasal spray daily. 7. Losartan 100 mg daily. 8. Dulera 1 puff inhalation b.i.d. 9. Multivitamin 1 tablet daily. 10. Potassium chloride 10 mEq p.o. daily. 11. Zocor 20 mg p.o. daily. 12. Vitamin B complex 1 capsule daily. 13. Lasix 40 mg p.o. b.i.d. 14. DuoNeb q.12 hourly p.r.n. 15. Proventil HFA q.6 hourly p.r.n. CONTRAINDICATION: None. CODE STATUS: Full code. 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 ALLERGIES: PENICILLIN. DISCHARGE PLAN: Posthospital, the patient will follow up with primary care physician in 1 week. HOSPITAL COURSE: This is an 87-year-old female, who was admitted by Dr. Linda Gambino, please see her H and P for further details. The patient was admitted for increasing shortness of breath and increasing hypoxia. She was diagnosed with diastolic heart failure exacerbation and underlying pneumonia. She was treated with Levaquin while in hospital as well as she was given more diuretic therapy. With this therapy, the patient condition improved to baseline level. She has home oxygen. She is up to her normal level. She is feeling much better. She remains afebrile. On discharge, we prescribed Levaquin for 5 more days and rest of medication will be continued as per previous. The patient is seen and examined at bedside today. Plan of care discussed with the family member. The patient and family member agree to go home today. Job ID: [id number]
== END 2018-10-26 13:48 | disposition home or self-care (01) ==
LOC: ERS 09:23 → 2SW 12:37
PROVIDERS: ADMIT Internal Medicine; ATTEND Internal Medicine
DX: I13.0 Hypertensive heart and chronic kidney disease with heart failure and stage 1 through stage 4 chronic kidney disease, or unspecified chronic kidney disease (principal); N18.3 Chronic kidney disease, stage 3 (moderate); I50.33 Acute on chronic diastolic (congestive) heart failure; N17.9 Acute kidney failure, unspecified; J96.21 Acute and chronic respiratory failure with hypoxia; J15.9 Unspecified bacterial pneumonia; E87.6 Hypokalemia; J43.9 Emphysema, unspecified; Z79.01 Long term (current) use of anticoagulants; Z79.899 Other long term (current) drug therapy; Z88.0 Allergy status to penicillin; Z99.81 Dependence on supplemental oxygen; Z77.22 Contact with and (suspected) exposure to environmental tobacco smoke (acute) (chronic)
CPT/HCPCS: 71045; 71275; 80048 ×2; 80053; 83880; 84484 ×2; 85025 ×3; 93005; 93798; 94640 ×7; 94760; 96365; 96375; 96376 ×3; 99285; G0378 ×2; 36415; 96374; J1940; J1956; J7620; Q9966

== ENCOUNTER 2018-12-31 12:07 | Emergency (ER) | payer MEDICARE ==
--- NOTE | 2018-12-31 14:27 | CT ---
HEAD CT WITHOUT CONTRAST: History: Vertigo FINDINGS: No parenchymal hemorrhage. No extraaxial hematoma. No midline shift. Basilar cisterns are patent. Brain volume is age appropriate. Cortical romo white matter differentiat ion is preserved. No evidence of hydrocephalus. White matter hypodensities due to chronic small vessel ischemic change. Calvarium is intact. Bilateral maxillary sinus mucosal disease. Adequate mastoid air cell aeration. IMPRESSION: 1. Age appropriate atrophy. 2. Chronic small vessel ischemic change white matter. 3. Bilateral sinus disease. 4. No acute intracranial process. POS: PPP
[2018-12-31 14:43] LABS: #Eosinphils 0.2 thou/uL (0.0-0.7); #Lymphocytes 1.3 thou/uL (1.20-3.40); #Monocytes 0.5 thou/uL (0.11-0.59); #Neutrophils 4.2 thou/uL (1.40-6.50); %Basophils 0.6 % (0.0-1.0); %Eosinophils 3.6 % (0.0-10.0); %Lymphocytes 20.3 % (21.0-51.0); %Monocytes 8.3 % (0.0-10.0); %Neutrophils 67.3 % (42.0-75.0); Hemoglobin 15.7 g/dL (12.0-16.0); Mean Corpuscular HGB CONC 32.3 g/dL (32.0-36.0); Mean Corpuscular Hemoglobin 27.7 pg (27.0-31.0); Mean Corpuscular Volume 85.9 fL (78.0-98.0); Mean Platelet Volume 9.1 fL (7.4-10.4); Platelet Count 334 thou/uL (130-400); RBC Distribution Width 13.7 % (11.5-14.5); Red Blood Cell (RBC) Count 5.65 mill/uL (4.20-5.40); White Blood Cell (WBC) Count 6.2 thou/uL (4.8-10.8)
[2018-12-31 15:12] LABS: ALT (SGPT) 16 U/L (8-55); AST (SGOT) 25 U/L (5-34); Albumin 4.4 g/dL (3.4-4.8); Alkaline Phosphatase 76 U/L (40-150); Anion Gap 14 mmol/L (10-20); BUN (Urea Nitrogen) 25 mg/dL (9.8-20.1); Calc. Creatinine Clearance 0 mL/min (70-130); Calcium 9.7 mg/dL (7.8-10.44); Carbon Dioxide 26 mmol/L (23-31); Chloride 101 mmol/L (98-107); Estimated GFR-MDRD 62; Globulin 2.4 g/dL (2.4-3.5); Glucose 86 mg/dL (83-110); Protein, Total 6.8 g/dL (6.0-8.3); Sodium 137 mmol/L (136-145)
[2018-12-31 15:46] LABS: Bilirubin Negative (Negative); Blood, Urine Negative (Negative); Clarity Clear (Clear); Glucose, Urine (Dipstick) Normal (Negative); Leukocyte Negative Leu/uL (Negative); Nitrite Negative (Negative); Protein, Urine (Dipstick) Negative (Neg-Trace); Urobilinogen Normal mg/dL (Less than 2)
== END 2018-12-31 16:34 | disposition home or self-care (01) ==
LOC: ERS 12:07
DX: R42 Dizziness and giddiness (principal); I11.0 Hypertensive heart disease with heart failure; I50.9 Heart failure, unspecified; J43.9 Emphysema, unspecified; Z79.899 Other long term (current) drug therapy
CPT/HCPCS: 36415; 70450; 80053; 81003; 84484; 85025; 93005

== ENCOUNTER 2020-10-01 15:39 | Emergency (ER) | payer MEDICARE, SELFPAY ==
[2020-10-01 18:08] LABS: #Basophils 0.1 thou/uL (0.0-0.2); #Eosinphils 0.2 thou/uL (0.0-0.7); #Lymphocytes 1.4 thou/uL (1.20-3.40); #Monocytes 0.8 thou/uL (0.11-0.59); #Neutrophils 4.6 thou/uL (1.40-6.50); %Eosinophils 2.8 % (0.0-10.0); %Lymphocytes 19.4 % (21.0-51.0); %Monocytes 11.8 % (0.0-10.0); %Neutrophils 65.1 % (42.0-75.0); Hemoglobin 14.6 g/dL (12.0-16.0); Mean Corpuscular HGB CONC 32.1 g/dL (32.0-36.0); Mean Corpuscular Hemoglobin 28.7 pg (27.0-31.0); Mean Corpuscular Volume 89.3 fL (78.0-98.0); Mean Platelet Volume 8.9 fL (7.4-10.4); Platelet Count 338 thou/uL (130-400); RBC Distribution Width 12.8 % (11.5-14.5); Red Blood Cell (RBC) Count 5.08 mill/uL (4.20-5.40)
[2020-10-01 18:31] LABS: ALT (SGPT) 12 U/L (8-55); AST (SGOT) 18 U/L (5-34); Albumin 3.7 g/dL (3.4-4.8); Alkaline Phosphatase 77 U/L (40-110); Anion Gap 13 mmol/L (10-20); BUN (Urea Nitrogen) 30 mg/dL (9.8-20.1); Bilirubin, Total 0.7 mg/dL (0.2-1.2); Calc. Creatinine Clearance 0 mL/min (70-130); Calcium 8.9 mg/dL (7.8-10.44); Carbon Dioxide 30 mmol/L (23-31); Chloride 100 mmol/L (98-107); Globulin 2.8 g/dL (2.4-3.5); Glucose 105 mg/dL (83-110); Potassium 3.8 mmol/L (3.5-5.1); Protein, Total 6.5 g/dL (5.8-8.1); Sodium 139 mmol/L (136-145)
== END 2020-10-01 20:18 | disposition home or self-care (01) ==
LOC: ERS 15:39
DX: I11.0 Hypertensive heart disease with heart failure (principal); I50.9 Heart failure, unspecified; Z79.899 Other long term (current) drug therapy
CPT/HCPCS: 36415; 71045; 80053; 83880; 84484; 85025; 87040; 93005

== ENCOUNTER 2021-01-09 06:12 | Inpatient (IN) | payer MEDICARE ==
[2021-01-09] MEDS ORDERED: Morphine 4 MG/ML VIAL ONE (06:55)
[2021-01-09] MEDS ORDERED: Ondansetron PF 4 MG/2 ML Vial ONE (06:55)
[2021-01-09 07:00] LABS: #Eosinphils 0.1 thou/uL (0.0-0.7); #Monocytes 0.6 thou/uL (0.11-0.59); #Neutrophils 8.3 thou/uL (1.40-6.50); %Basophils 0.3 % (0.0-1.0); %Eosinophils 0.5 % (0.0-10.0); %Monocytes 5.7 % (0.0-10.0); %Neutrophils 83.5 % (42.0-75.0); Hemoglobin 15.4 g/dL (12.0-16.0); Mean Corpuscular Volume 90.8 fL (78.0-98.0); Mean Platelet Volume 8.8 fL (7.4-10.4); Platelet Count 373 thou/uL (130-400); RBC Distribution Width 12.5 % (11.5-14.5); Red Blood Cell (RBC) Count 5.12 mill/uL (4.20-5.40)
[2021-01-09 07:21] LABS: ALT (SGPT) 15 U/L (8-55); AST (SGOT) 22 U/L (5-34); Albumin 4.3 g/dL (3.4-4.8); Alkaline Phosphatase 71 U/L (40-110); Anion Gap 12 mmol/L (10-20); BUN (Urea Nitrogen) 19 mg/dL (9.8-20.1); Bilirubin, Total 0.9 mg/dL (0.2-1.2); Calc. Creatinine Clearance 0 mL/min (70-130); Calcium 9.3 mg/dL (7.8-10.44); Carbon Dioxide 32 mmol/L (23-31); Chloride 100 mmol/L (98-107); Globulin 2.8 g/dL (2.4-3.5); Glucose 130 mg/dL (83-110); Potassium 3.5 mmol/L (3.5-5.1); Protein, Total 7.1 g/dL (5.8-8.1); Sodium 140 mmol/L (136-145)
[2021-01-09 07:34] LABS: Lipase 5648 U/L (8-78)
[2021-01-09 10:25] LABS: SARS-CoV-2 NAA Rapid Test Not Detected (NotDetected)
[2021-01-09] MEDS ORDERED: Ondansetron PF 4 MG/2 ML Vial IVP PRN ×2 (10:45→11:13)
[2021-01-09] MEDS ORDERED: Sodium Chloride 0.9% 1,000 ML IV SCH (10:45)
[2021-01-09] MEDS ORDERED: Morphine 2 MG/ML VIAL SLOW IVP PRN (10:45)
[2021-01-09] MEDS ORDERED: Acetaminophen 325 MG TAB PO PRN (10:46)
[2021-01-09] MEDS ORDERED: Ondansetron ODT 4 MG TAB PO PRN (10:46)
[2021-01-09] MEDS ORDERED: Ondansetron ODT 4 MG TAB SL PRN (11:13)
[2021-01-09] MEDS ORDERED: Lorazepam 2 MG/ML VIAL SLOW IVP PRN (11:13)
[2021-01-09] MEDS ORDERED: Iopamidol-370 76% 500 ML 1 ML ONE (11:15)
[2021-01-09] MEDS: Lactated Ringer's 1,000 ML IV SCH ×2 (12:44→20:03)
[2021-01-09] MEDS: Carvedilol 6.25 MG TAB PO SCH (16:23)
[2021-01-09 18:28] VITALS: BMI 33.0
[2021-01-09] MEDS: Mometasone 100 MCG/Formoterol 5 MCG 120 PUFF INHALER INH SCH (18:53)
[2021-01-09] MEDS: Sotalol HCl 80 MG TAB PO SCH (20:03)
[2021-01-10] MEDS: Lactated Ringer's 1,000 ML IV SCH ×2 (04:07→12:08)
[2021-01-10 04:18] LABS: #Eosinphils 0.1 thou/uL (0.0-0.7); #Monocytes 0.8 thou/uL (0.11-0.59); #Neutrophils 7.5 thou/uL (1.40-6.50); %Basophils 0.4 % (0.0-1.0); %Lymphocytes 10.9 % (21.0-51.0); %Neutrophils 79.8 % (42.0-75.0); Mean Corpuscular HGB CONC 33.7 g/dL (32.0-36.0); Mean Corpuscular Hemoglobin 30.6 pg (27.0-31.0); Mean Corpuscular Volume 90.8 fL (78.0-98.0); Mean Platelet Volume 8.7 fL (7.4-10.4); Platelet Count 301 thou/uL (130-400); RBC Distribution Width 12.5 % (11.5-14.5); Red Blood Cell (RBC) Count 4.56 mill/uL (4.20-5.40); White Blood Cell (WBC) Count 9.4 thou/uL (4.8-10.8)
[2021-01-10 04:41] LABS: Anion Gap 11 mmol/L (10-20); BUN (Urea Nitrogen) 13 mg/dL (9.8-20.1); Calc. Creatinine Clearance 67 mL/min (70-130); Calcium 8.8 mg/dL (7.8-10.44); Carbon Dioxide 32 mmol/L (23-31); Chloride 103 mmol/L (98-107); Glucose 99 mg/dL (83-110); Potassium 3.5 mmol/L (3.5-5.1); Sodium 142 mmol/L (136-145)
[2021-01-10] MEDS: Mometasone 100 MCG/Formoterol 5 MCG 120 PUFF INHALER INH SCH (06:49)
[2021-01-10] MEDS: Sotalol HCl 80 MG TAB PO SCH ×2 (08:36→20:54)
[2021-01-10] MEDS: Carvedilol 6.25 MG TAB PO SCH ×2 (08:37→17:03)
[2021-01-10 12:55] LABS: #Eosinphils 0.1 thou/uL (0.0-0.7); #Lymphocytes 0.8 thou/uL (1.20-3.40); #Monocytes 0.8 thou/uL (0.11-0.59); #Neutrophils 8.1 thou/uL (1.40-6.50); %Basophils 0.2 % (0.0-1.0); %Eosinophils 0.7 % (0.0-10.0); %Lymphocytes 7.9 % (21.0-51.0); %Neutrophils 83.2 % (42.0-75.0); Hemoglobin 13.8 g/dL (12.0-16.0); Mean Corpuscular HGB CONC 32.7 g/dL (32.0-36.0); Mean Corpuscular Hemoglobin 29.6 pg (27.0-31.0); Mean Corpuscular Volume 90.6 fL (78.0-98.0); Mean Platelet Volume 8.8 fL (7.4-10.4); Platelet Count 338 thou/uL (130-400); RBC Distribution Width 12.5 % (11.5-14.5); Red Blood Cell (RBC) Count 4.64 mill/uL (4.20-5.40); White Blood Cell (WBC) Count 9.7 thou/uL (4.8-10.8)
[2021-01-10 13:19] LABS: ALT (SGPT) 12 U/L (8-55); AST (SGOT) 18 U/L (5-34); Albumin 3.6 g/dL (3.4-4.8); Alkaline Phosphatase 56 U/L (40-110); Anion Gap 10 mmol/L (10-20); BUN (Urea Nitrogen) 14 mg/dL (9.8-20.1); Bilirubin, Total 1.4 mg/dL (0.2-1.2); Calc. Creatinine Clearance 71 mL/min (70-130); Calcium 8.9 mg/dL (7.8-10.44); Carbon Dioxide 32 mmol/L (23-31); Chloride 103 mmol/L (98-107); Globulin 2.7 g/dL (2.4-3.5); Glucose 90 mg/dL (83-110); Lipase 82 U/L (8-78); Potassium 3.6 mmol/L (3.5-5.1); Protein, Total 6.3 g/dL (5.8-8.1); Sodium 141 mmol/L (136-145)
[2021-01-10 13:29] LABS: Troponin I 0.021 ng/mL (< 0.028)
[2021-01-10] MEDS ORDERED: Furosemide 40 MG/4 ML VIAL SLOW IVP SCH ×2 (13:45→18:30)
[2021-01-10] MEDS ORDERED: Piperacillin/Tazobactam 4.5 GM in Sodium Chloride 0.9% 100 ML IVPB SCH (16:15)
[2021-01-10] MEDS ORDERED: Piperacillin/Tazobactam 3.375 GM in Sodium Chloride 0.9% 100 ML IVPB SCH (17:00)
[2021-01-10] MEDS: Mometasone 200 MCG/Formoterol 5 MCG 120 PUFF INHALER INH SCH (20:01)
[2021-01-10] MEDS: Atorvastatin Calcium 10 MG TAB PO SCH (20:54)
[2021-01-10] MEDS: Piperacillin/Tazobactam 3.375 GM in Sodium Chloride 0.9% 100 ML IVPB SCH (20:54)
[2021-01-10] MEDS: Gabapentin 300 MG CAP PO SCH (20:54)
[2021-01-10] MEDS: Apixaban 5 MG TAB PO SCH (20:54)
[2021-01-11 03:28] LABS: #Eosinphils 0.1 thou/uL (0.0-0.7); #Lymphocytes 0.9 thou/uL (1.20-3.40); #Monocytes 0.9 thou/uL (0.11-0.59); #Neutrophils 7.8 thou/uL (1.40-6.50); %Basophils 0.3 % (0.0-1.0); %Eosinophils 0.7 % (0.0-10.0); %Lymphocytes 9.6 % (21.0-51.0); %Monocytes 8.7 % (0.0-10.0); %Neutrophils 80.8 % (42.0-75.0); Hemoglobin 13.5 g/dL (12.0-16.0); Mean Corpuscular HGB CONC 33.4 g/dL (32.0-36.0); Mean Corpuscular Hemoglobin 30.6 pg (27.0-31.0); Mean Corpuscular Volume 91.5 fL (78.0-98.0); Mean Platelet Volume 8.6 fL (7.4-10.4); Platelet Count 281 thou/uL (130-400); RBC Distribution Width 12.5 % (11.5-14.5); Red Blood Cell (RBC) Count 4.42 mill/uL (4.20-5.40); White Blood Cell (WBC) Count 9.7 thou/uL (4.8-10.8)
[2021-01-11] MEDS: Piperacillin/Tazobactam 3.375 GM in Sodium Chloride 0.9% 100 ML IVPB SCH ×3 (04:32→21:08)
[2021-01-11] MEDS: Acetaminophen 325 MG TAB PO PRN (04:32)
[2021-01-11] MEDS: Furosemide 40 MG/4 ML VIAL SLOW IVP SCH ×2 (05:19→13:41)
[2021-01-11] MEDS: Sotalol HCl 80 MG TAB PO SCH ×2 (08:32→21:09)
[2021-01-11] MEDS: Stress 600 With Zinc 1 TAB PO SCH (08:32)
[2021-01-11] MEDS: Carvedilol 6.25 MG TAB PO SCH ×2 (08:32→16:02)
[2021-01-11] MEDS: Apixaban 5 MG TAB PO SCH ×2 (08:33→21:08)
[2021-01-11] MEDS: Mometasone 200 MCG/Formoterol 5 MCG 120 PUFF INHALER INH SCH ×2 (08:33→18:05)
[2021-01-11] MEDS: Gabapentin 300 MG CAP PO SCH ×3 (08:33→21:08)
[2021-01-11 12:10] LABS: Phosphorus 2.4 mg/dL (2.3-4.7)
[2021-01-11 13:50] LABS: Anion Gap 11 mmol/L (10-20); BUN (Urea Nitrogen) 14 mg/dL (9.8-20.1); Calc. Creatinine Clearance 63 mL/min (70-130); Calcium 8.9 mg/dL (7.8-10.44); Carbon Dioxide 34 mmol/L (23-31); Chloride 100 mmol/L (98-107); Glucose 129 mg/dL (83-110); Magnesium 1.7 mg/dL (1.6-2.6); Phosphorus 2.3 mg/dL (2.3-4.7); Sodium 142 mmol/L (136-145)
[2021-01-11] MEDS: Atorvastatin Calcium 10 MG TAB PO SCH (21:08)
[2021-01-12 04:06] LABS: #Eosinphils 0.2 thou/uL (0.0-0.7); #Lymphocytes 1.3 thou/uL (1.20-3.40); #Monocytes 0.7 thou/uL (0.11-0.59); #Neutrophils 6.3 thou/uL (1.40-6.50); %Basophils 0.1 % (0.0-1.0); %Eosinophils 2.9 % (0.0-10.0); %Lymphocytes 14.8 % (21.0-51.0); %Monocytes 8.1 % (0.0-10.0); %Neutrophils 74.2 % (42.0-75.0); Hemoglobin 13.7 g/dL (12.0-16.0); Mean Corpuscular Hemoglobin 30.1 pg (27.0-31.0); Mean Corpuscular Volume 91.1 fL (78.0-98.0); Mean Platelet Volume 9.1 fL (7.4-10.4); Platelet Count 294 thou/uL (130-400); RBC Distribution Width 12.4 % (11.5-14.5); Red Blood Cell (RBC) Count 4.56 mill/uL (4.20-5.40); White Blood Cell (WBC) Count 8.5 thou/uL (4.8-10.8)
[2021-01-12 04:35] LABS: Lipase 14 U/L (8-78); Magnesium 1.6 mg/dL (1.6-2.6)
[2021-01-12] MEDS: Piperacillin/Tazobactam 3.375 GM in Sodium Chloride 0.9% 100 ML IVPB SCH (05:32)
[2021-01-12] MEDS: Furosemide 40 MG/4 ML VIAL SLOW IVP SCH ×2 (05:33→15:48)
[2021-01-12] MEDS: Sotalol HCl 80 MG TAB PO SCH ×2 (08:52→21:26)
[2021-01-12] MEDS: Gabapentin 300 MG CAP PO SCH ×3 (08:52→21:26)
[2021-01-12] MEDS: Stress 600 With Zinc 1 TAB PO SCH (08:52)
[2021-01-12] MEDS: Carvedilol 6.25 MG TAB PO SCH ×2 (08:53→15:48)
[2021-01-12] MEDS: Apixaban 5 MG TAB PO SCH ×2 (08:53→21:26)
[2021-01-12] MEDS: Acetaminophen 325 MG TAB PO PRN (11:43)
[2021-01-12] MEDS: Mometasone 200 MCG/Formoterol 5 MCG 120 PUFF INHALER INH SCH ×2 (11:51→20:01)
[2021-01-12] MEDS: Atorvastatin Calcium 10 MG TAB PO SCH (21:26)
[2021-01-13 05:09] LABS: Anion Gap 12 mmol/L (10-20); BUN (Urea Nitrogen) 15 mg/dL (9.8-20.1); Calc. Creatinine Clearance 66 mL/min (70-130); Calcium 8.4 mg/dL (7.8-10.44); Carbon Dioxide 31 mmol/L (23-31); Chloride 96 mmol/L (98-107); Glucose 88 mg/dL (83-110); Lipase 16 U/L (8-78); Magnesium 1.7 mg/dL (1.6-2.6); Sodium 136 mmol/L (136-145)
[2021-01-13 05:25] LABS: Potassium 2.7 mmol/L (3.5-5.1)
[2021-01-13] MEDS: Furosemide 40 MG/4 ML VIAL SLOW IVP SCH (06:09)
[2021-01-13 06:27] LABS: Magnesium 1.8 mg/dL (1.6-2.6)
[2021-01-13] MEDS: Sotalol HCl 80 MG TAB PO SCH ×2 (08:25→21:17)
[2021-01-13] MEDS: Carvedilol 6.25 MG TAB PO SCH ×2 (08:26→17:57)
[2021-01-13] MEDS: Apixaban 5 MG TAB PO SCH ×2 (08:26→21:16)
[2021-01-13] MEDS: Gabapentin 300 MG CAP PO SCH ×3 (08:26→21:17)
[2021-01-13] MEDS: Stress 600 With Zinc 1 TAB PO SCH (08:33)
[2021-01-13] MEDS: Potassium Chloride 20 MEQ TAB PO SCH ×3 (09:32→17:56)
[2021-01-13] MEDS: Mometasone 200 MCG/Formoterol 5 MCG 120 PUFF INHALER INH SCH ×2 (10:26→19:59)
[2021-01-13 15:58] LABS: Potassium 3.1 mmol/L (3.5-5.1)
[2021-01-13] MEDS ORDERED: Potassium Chloride 20 MEQ TAB PO SCH (16:15)
[2021-01-13] MEDS: Atorvastatin Calcium 10 MG TAB PO SCH (21:16)
[2021-01-13] MEDS: Acetaminophen 325 MG TAB PO PRN (21:18)
[2021-01-14] MEDS: Mometasone 200 MCG/Formoterol 5 MCG 120 PUFF INHALER INH SCH (07:15)
[2021-01-14] MEDS: Potassium Chloride 20 MEQ TAB PO SCH (08:16)
[2021-01-14] MEDS: Sotalol HCl 80 MG TAB PO SCH (08:16)
[2021-01-14] MEDS: Carvedilol 6.25 MG TAB PO SCH (08:16)
[2021-01-14] MEDS: Apixaban 5 MG TAB PO SCH (08:16)
[2021-01-14] MEDS: Gabapentin 300 MG CAP PO SCH (08:17)
[2021-01-14] MEDS ORDERED: Furosemide 40 MG TAB PO SCH (09:00)
[2021-01-14 09:42] LABS: Anion Gap 10 mmol/L (10-20); BUN (Urea Nitrogen) 15 mg/dL (9.8-20.1); Calc. Creatinine Clearance 79 mL/min (70-130); Calcium 8.8 mg/dL (7.8-10.44); Carbon Dioxide 34 mmol/L (23-31); Chloride 98 mmol/L (98-107); Glucose 86 mg/dL (83-110); Potassium 3.4 mmol/L (3.5-5.1); Sodium 139 mmol/L (136-145)
[2021-01-14] MEDS: Stress 600 With Zinc 1 TAB PO SCH (09:52)
[2021-01-14] MEDS ORDERED: Potassium Chloride 20 MEQ TAB PO SCH (10:45)
[2021-01-14 11:36] VITALS: BP 129/63; TEMP 98.7
== END 2021-01-14 12:15 | disposition home or self-care (01) | DRG 438 ==
LOC: ERS 06:12 → ONC 09:20 → IMCU/EMU 01-10 22:23 → 2NO 01-12 18:07
PROVIDERS: ADMIT Internal Medicine; ATTEND Hospitalist
PROC: 5A09457 Assistance with Respiratory Ventilation, 24-96 Consecutive Hours, Continuous Positive Airway Pressure (ICD-10-PCS; principal; 2021-01-10)
PROC: 5A0935A Assistance with Respiratory Ventilation, Less than 24 Consecutive Hours, High Flow/Velocity Cannula (ICD-10-PCS; 2021-01-10)
PROC: 4B02XSZ Measurement of Cardiac Pacemaker, External Approach (ICD-10-PCS; 2021-01-10)
DX: K85.00 Idiopathic acute pancreatitis without necrosis or infection (principal); I50.33 Acute on chronic diastolic (congestive) heart failure; J96.21 Acute and chronic respiratory failure with hypoxia; Z20.822 Contact with and (suspected) exposure to COVID-19; I11.0 Hypertensive heart disease with heart failure; I48.0 Paroxysmal atrial fibrillation; I49.5 Sick sinus syndrome; G47.33 Obstructive sleep apnea (adult) (pediatric); E87.6 Hypokalemia; Z90.49 Acquired absence of other specified parts of digestive tract; Z90.710 Acquired absence of both cervix and uterus; Z98.890 Other specified postprocedural states; Z82.49 Family history of ischemic heart disease and other diseases of the circulatory system; Z79.899 Other long term (current) drug therapy; Z83.49 Family history of other endocrine, nutritional and metabolic diseases; Z79.01 Long term (current) use of anticoagulants; Z79.51 Long term (current) use of inhaled steroids; Z99.81 Dependence on supplemental oxygen; Z95.0 Presence of cardiac pacemaker; Z88.0 Allergy status to penicillin
CPT/HCPCS: 0240U; 36415; 71045; 74177; 80048; 80053; 83690; 83735; 83880; 84100; 84484; 85025; 87040; 93005; 93306; 93798; 94640; 94660; 96374; 96375; J1940; J2060; J2270; J2405; J2543; J3490; J7620; Q9967